=== PATIENT | male | born 1970 | race Caucasian/White ===

== ENCOUNTER 2019-03-23 18:41 | Inpatient (IN) ==
[2019-03-23] MEDS ORDERED: SODIUM CHLORIDE 0.9% 1000ML 2,000 ML IV SCH (19:15)
[2019-03-23] MEDS ORDERED: ACETAMINOPHEN 1,000 MG/100 ML VIAL IV STA (19:38)
[2019-03-23] MEDS ORDERED: MoRPHine SULFATE 10 MG/ML CARP/VIAL IV STA (19:46)
[2019-03-23 19:47] LABS: Basophils # (auto) 0.02 K/uL (0-0.2); Basophils % (auto) 0.2 %; Eosinophils # (auto) 0.14 K/uL (0-0.5); Eosinophils % (auto) 1.5 %; Hematocrit (blood only) 45.3 % (42-52); Hemoglobin 16.3 g/dL (14.0-18.0); Immature Granulocytes # (auto) 0.02 K/uL (0.00-0.02); Immature Granulocytes % (auto) 0.2 %; Lymphocytes # (auto) 2.45 K/uL (1.2-3.4); Lymphocytes % (auto) 26.1 %; Mean Corpuscular Volume 85.5 fL (80-100); Mean Platelet Volume 11.7 fL (7.4-10.4); Monocytes % (auto) 5.3 %; Neutrophils # (auto) 6.25 K/uL (1.4-6.5); Neutrophils % (auto) 66.7 %; Platelet Count 171 K/uL (130-400); RDW Coefficient of Variation 14.2 % (11.5-14.5); RDW Standard Deviation 44.4 fL (36.4-46.3); White Blood Count 9.38 K/uL (4.8-10.8)
[2019-03-23 20:08] LABS: Albumin Globulin Ratio 1.3 (0.9-2); Albumin Level 4.4 gm/dl (3.4-5.0); BUN Creatinine Ratio 14.7 (10-20); Bilirubin,Total 0.4 mg/dl (0.2-1); Calcium 9.6 mg/dl (8.5-10.1); Creatinine Clr Calc Pharmacy 100.1 ml/min; Est GFR (African American) 104.5; Est GFR (Non-African American) 90.2; Globulin 3.5 gm/dl (2.5-4.0); Total Protein 7.9 gm/dl (6.4-8.2)
[2019-03-23 20:39] LABS: Appearance Urine Clear (Clear); Bacteria Urine Automated Negative (Negative); Bilirubin Urine Negative (Negative); Blood Urine Trace (Negative); Color Urine Yellow; Epithelial Cell Urine Auto >30 /lpf (0-5); Glucose Urine UA Negative (Negative); Ketones Urine Negative (Negative); Leukocyte Esterase Urine 2+ (Negative); Nitrite Urine Negative (Negative); Protein Urine Trace (Negative); RBC Urine Automated 0-4 /hpf (0-4); Specific Gravity Urine 1.009 (1.000-1.030); Urobilinogen Urine Negative (Negative); WBC Urine Automated >30 /hpf (0-5)
[2019-03-23 20:51] LABS: Renal Epithelial Cells Urine 0-5 /lpf (0-5)
[2019-03-23] MEDS ORDERED: IOVERSOL 100ml IV PRN (20:56)
--- NOTE | 2019-03-23 22:02 | CT Scan Report ---
ABDOMEN AND PELVIS CT WITH IV CONTRAST CT DOSE: 336.06 mGy.cm HISTORY: left flank pain TECHNIQUE: Multiaxial CT images of the abdomen and pelvis were performed following the use of intrave nous contrast. A dose lowering technique was utilized adhering to the principles of ALARA. COMPARISON STUDY: None. FINDINGS: The lung bases are clear. No pneumoperitoneum. No pneumatosis. No fractures within the visu alized osseous structures. A few subcentimeter hypodense lesions within the left hepatic lobe. These are technically too small to characterize but statistically represent cysts. The gallbladder, spleen, pancreas, and right adrenal gland are unremarkable. There is a 3 mm stone within the right kidney. N o right-sided hydronephrosis. Moderate left hydronephrosis secondary to an obstructing 6 mm stone at the left ureteropelvic junction. There is an indeterminate 2.5 cm left adrenal gland nodule. No retro peritoneal lymphadenopathy. Normal bladder. No pelvic free fluid. No bowel wall thickening or obstruc tion. The appendix is surgically absent. Suture material within a small bowel lobe within the right l ower quadrant. Mild calcified plaque within the normal caliber abdominal aorta. IMPRESSION: 1. A 6 mm obstructing stone at the left ureteropelvic junction resulting in moderate left hydronephro sis. 2. Right-sided nephrolithiasis. 3. No bowel wall thickening or obstruction. 4. Prior appendectomy. Electronically signed by: Chano Mosher M.D. 03/23/2019 10:00 PM
[2019-03-23] MEDS ORDERED: cefTRIAXone SODIUM 1,000 MG/50 ML BAG IV STA (22:40)
[2019-03-23] MEDS ORDERED: ACETAMINOPHEN 325 MG TAB PO PRN (23:41)
[2019-03-23] MEDS ORDERED: TAMSULOSIN HCL 0.4 MG CAP PO ONE (23:41)
[2019-03-23] MEDS ORDERED: ONDANSETRON INJ 2 MG/ML 2 ML VIAL IV PRN (23:41)
[2019-03-24] MEDS: SODIUM CHLORIDE 0.9% 1000ML 1,000 ML IV SCH ×5 (00:58→22:05)
[2019-03-24] MEDS: MoRPHine SULFATE 4 MG/ML 1 ML CARP\\VIAL IV PRN ×5 (00:58→22:04)
--- NOTE | 2019-03-24 03:13 | History and Physical Report ---
DATE OF ADMISSION: 03/23/2019 CHIEF COMPLAINT: Left flank pain. HISTORY OF PRESENT ILLNESS: This 49-year-old male with past medical history significant for history of multiple kidney stones in the past, history of hepatitis C, history of depression, history of peripheral neuropathy, presents with left flank pain. He says the pain started at 11 o'clock going from the left flank to left groin region, very severe in nature, associated with some burning micturition. He said he also had some hematuria. Denies any fever, chills, no nausea or vomiting. He says he has history of stones in the past and passed them without any intervention. Currently resting comfortably, hemodynamically stable. Denies any headache, no dizziness, no earache, no blurred vision, no runny nose, no sore throat, no difficulty swallowing. Appetite is good. No night sweats. No recent weight gain, no weight loss. No chest pain or shortness of breath. No cough, no diarrhea, no constipation, no blood in the stools. He says he is also having difficulty when he micturates as he does not empty fully and also his stream is weak. Denies any swelling in the legs. No rash, no easy bleeding or easy bruising. He has a chronic back pain and also knee pain. His ambulation is limited because of the chronic pain. ALLERGIES: No known drug allergies. PAST MEDICAL HISTORY: As mentioned above. PAST SURGICAL HISTORY: Appendectomy, right knee surgery. MEDICATIONS: The patient is on Remeron 30 mg p.o. at bedtime and nortriptyline 25 mg p.o. b.i.d. FAMILY HISTORY: Significant for father of colon cancer. Brother has osteoporosis. SOCIAL HISTORY: Smokes 1 pack a day for several years. Alcohol occasional. Says had all kinds of drugs in the past, but quit them 11 years ago. REVIEW OF SYMPTOMS: As per HPI. Rest of review of systems negative. PHYSICAL EXAMINATION: GENERAL: The patient is of moderate build, not in acute distress. VITAL SIGNS: Temperature 36.8, pulse 63, respiratory rate 18, blood pressure 121/82, oxygen 98% room air. HEENT: No pallor, no icterus. Pupils equal, round, and reactive to light. NECK: No JVD, no neck masses, no carotid bruits. CARDIOVASCULAR: S1, S2 heard, regular rate and rhythm, no murmur, no gallop. RESPIRATORY SYSTEM: Normal AP diameter. No accessory muscle use. No wheezing, no crackles. ABDOMEN: Soft, bowel sounds present. Diffuse mild guarding. Left CVA tenderness present. No distention, no rigidity. CENTRAL NERVOUS SYSTEM: Cranial nerves II-XII grossly intact. Nonfocal. EXTREMITIES: No edema, no erythema. LABS: WBC 9.3, hemoglobin 16.3, hematocrit 45.3, platelets 171. Sodium 139, chloride 106, bicarbonate 24, BUN 14, creatinine 0.9, serum glucose 93, calcium 9.6, total bilirubin 0.4, ALT 40, alkaline phosphatase is 93, lipase 102. Urinalysis positive for trace blood and leukocyte esterase. CT of the abdomen and pelvis, a 6 mm obstructing stone at the left UPJ junction resulting in moderate hydronephrosis. No bowel wall thickening or obstruction, prior appendectomy. ASSESSMENT AND PLAN: 1. This is a 49-year-old male who presents with left renal colic, left sided kidney stone with 6 mm at UP junction causing moderate left hydronephrosis, 3 mm within right kidney, history of multiple kidney stones in the past per the patient. UA is positive. Received IV Rocephin in the ERwhich will be continued and will follow cultures. IV fluids, n.p.o. after midnight with IV pain meds p.r.n. and IV antiemetics p.r.n., and consult urology for possible stent placement. Monitor in the medical floor. 2. Chronic depression. Continue Remeron. 3. Chronic back pain. Peripheral neuropathy on nortriptyline 4.Deep venous thrombosis prophylaxis, sequential compression devices for now. Disposition: Admit to medical floor. Level 1 full code. MTDD
--- NOTE | 2019-03-24 04:55 | Emergency Department Note ---
Entered by Afshan Harris acting as a scribe for Iain Avelar MD History of Present Illness General Chief complaint: Kidney Stone Stated complaint: KIDNEY STONE Time Seen by Provider: 03/23/19 19:14 Source: patient Mode of arrival: ambulatory Limitations: no limitations History of Present Illness Provider complaint: left flank pain Onset (ago): day(s) (yesterday) Location: back and left Radiation: other (groin) Pain Consistency: + other (worsening) Maximum Pain Intensity: 10 Current Pain Intensity: 7 Quality: + other (stones) Associated symptoms: + other (urinary symptoms); no nausea/vomiting The patient is a 49 year old male with a history of kidney stones and hepatitis C who presents to the ER from [facility] with complaints of a worsening left flank pain that began yesterday. The patient reports that his pain radiates to his left groin. He denies any nausea or vomiting but states he has had d ifficulty urinating and explains he feels like he cant empty his bladder. He also notes that he has had discolored urine. He rates his pain a 7/10. Home Medications Home Medications Medication Instructions Recorded Confirmed Type ibuprofen 400 mg PO TID PRN 03/23/19 03/23/19 History mirtazapine 30 mg PO HS 03/23/19 03/23/19 History nortriptyline 25 mg PO BID 03/23/19 03/23/19 History Allergies Allergy/AdvReac Type Severity Reaction Status Date / Time No Known Allergies Allergy Unverified 03/23/19 20:03 Past Med/Surg History Medical History Hepatitis C Bilateral kidney stones Surgical History History of appendectomy Social History Preferred Language: Bolivian Communication Ability: Effective Associate Account Director Required: No Beliefs That Will Affect Care: None Current Living Situation: Other Current Living Situation Comment: [facility] Feels Safe at Home: Yes Safety Concerns: Feels Safe At This Time Smoking Status: Current every day smoker Hx Alcohol Use: No Hx Substance Use: No Review of Systems See HPI for pertinent positives & negatives. and A total of 10 systems reviewed and were otherwise negative Physical Exam Vital Signs Vital Signs - 24 hr 03/23/19 18:46 03/23/19 19:30 03/23/19 20:38 Temperature 36.8 C Temperature Source Oral Sepsis Recent Fever Within 48 Hours No Sepsis New/Unexplained Change in Mental Status No Sepsis Action Taken by Nursing No Action Required Pulse Rate 87 Pulse Rate [Apical] 73 Pulse Rate [Left Finger] Pulse Rhythm [Left Finger] Pulse Strength Normal Pulse Strength [Left Finger] Respiratory Rate 20 18 Respiratory Effort / Characteristics Non-Labored Spontaneous Respiratory Depth Normal Normal Blood Pressure 120/84 Blood Pressure [Right Arm] 135/80 Blood Pressure Mean 96 Blood Pressure Mean [Right Arm] 98 Blood Pressure Position Sitting Blood Pressure Position [Right Arm] Pulse Oximetry 99 96 Oxygen Delivery Method Room Air Room Air Room Air 03/23/19 22:08 03/23/19 23:24 03/23/19 23:35 Temperature 36.8 C 36.7 C Temperature Source Oral Oral Sepsis Recent Fever Within 48 Hours Sepsis New/Unexplained Change in Mental Status Sepsis Action Taken by Nursing Pulse Rate 71 Pulse Rate [Apical] 63 Pulse Rate [Left Finger] 69 Pulse Rhythm [Left Finger] Regular Pulse Strength Pulse Strength [Left Finger] Normal Respiratory Rate 18 16 16 Respiratory Effort / Characteristics Non-Labored Respiratory Depth Normal Normal Blood Pressure 121/80 Blood Pressure [Right Arm] 121/82 144/84 H Blood Pressure Mean Blood Pressure Mean [Right Arm] 95 104 Blood Pressure Position Blood Pressure Position [Right Arm] Lying Pulse Oximetry 98 99 99 Oxygen Delivery Method Room Air Room Air Room Air GENERAL: Awake, alert, uncomfortable-appearing, in no distress HENT: Normocephalic, atraumatic. Oropharynx with dry mucous membranes and otherwise unremarkable. EYES: Normal conjunctiva. Sclera non-icteric. NECK: Supple. No nuchal rigidity. FROM. No JVD. RESPIRATORY: CTAB CARDIAC: Regular rate, normal rhythm. Extremities warm and well perfused. Pulses equal. ABDOMEN: Soft, non-distended. Mild left flank and LLQ tenderness to palpation. No rebound or guarding. No masses. RECTAL: Deferred. MUSCULOSKELETAL: Chest examination reveals no tenderness. The back is symmetrical on inspection without obvious abnormality. There is no CVA tenderness to palpation. No joint edema. LOWER EXTREMITIES: Calves are equal size bilaterally and non-tender. No edema. No discoloration. NEURO: Normal sensorium. No sensory or motor deficits noted. SKIN: No rash or jaundice noted. Course 1939: The patient was evaluated in room C9 and a complete history and physical examination were performed. 2242: I reviewed the patient's case with Dr. Miguel [facility] Hospitalist. He will evaluate the patient for further management. Administered Medications Sodium Chloride (Nss 1000ml) 1,000 mls @ 150 mls/hr IV .Q6H40M NICOLLE Stop: 04/22/19 23:40 Last Admin: 03/24/19 00:58 Dose: 150 mls/hr Documented by: [id number] Morphine Sulfate (Morphine Sulfate) 3 mg IV Q3H PRN PRN Reason: Pain Stop: 04/06/19 23:40 Last Admin: 03/24/19 00:58 Dose: 3 mg Documented by: [id number] Discontinued Medications Sodium Chloride (Nss 1000ml) 2,000 mls @ 999 mls/hr IV .Q2H1M NICOLLE Stop: 03/23/19 21:15 Last Infusion: 03/23/19 21:11 Dose: 0 mls/hr Documented by: [id number] Admin: 03/23/19 19:51 Dose: 999 mls/hr Documented by: [id number] Acetaminophen (Ofirmev) 1,000 mg in 100 mls @ 400 mls/hr IV NOW STA Stop: 03/23/19 19:52 Last Infusion: 03/23/19 20:38 Dose: 0 mls/hr Documented by: [id number] Admin: 03/23/19 19:51 Dose: 400 mls/hr Documented by: [id number] Ceftriaxone Sodium (Rocephin) 1,000 mg in 50 mls @ 100 mls/hr IV NOW STA Stop: 03/23/19 23:09 Last Infusion: 03/23/19 23:16 Dose: 0 mls/hr Documented by: [id number] Admin: 03/23/19 22:46 Dose: 100 mls/hr Documented by: [id number] Ioversol (Optiray 320 100ml) 93 ml IV ONCE PRN PRN Reason: Interaction Checking Stop: 03/27/19 20:55 Last Admin: 03/23/19 20:56 Dose: 93 ml Documented by: [id number] Morphine Sulfate (Morphine Sulfate) 8 mg IV NOW STA Stop: 03/23/19 19:47 Last Admin: 03/23/19 19:51 Dose: 8 mg Documented by: [id number] Tamsulosin HCl (Flomax) 0.4 mg PO NOW ONE Stop: 03/23/19 23:42 Last Admin: 03/24/19 01:15 Dose: 0.4 mg Documented by: [id number] Medical Decision Making Differential Diagnosis Differential diagnosis includes: renal colic, appendicitis, diverticulitis, mesenteric ischemia, aortic pathology, infections, inflammatory bowel disease, PUD, biliary pathology, UTI, as well as others were entertained. Medical Records Attestation: I reviewed the patient's medical records. Home Medications Current Medication List: was personally reviewed by me Laboratory Data Attestation: I reviewed the patient's lab results. Result diagrams: 03/23/19 19:30 03/23/19 20:15 Lab Results 03/23/19 03/23/19 03/23/19 Range/Units 19:30 19:30 20:15 WBC 9.38 (4.8-10.8) K/uL RBC 5.30 (4.7-6.1) M/uL Hgb 16.3 (14.0-18.0) g/dL Hct 45.3 (42-52) % MCV 85.5 (80-100) fL MCH 30.8 (25-34) pg MCHC 36.0 (32-36) g/dL RDW Std Deviation 44.4 (36.4-46.3) fL RDW Coeff of Adan 14.2 (11.5-14.5) % Plt Count 171 (130-400) K/uL MPV 11.7 H (7.4-10.4) fL Immature Gran % (Auto) 0.2 % Neut % (Auto) 66.7 % Lymph % (Auto) 26.1 % [place] % (Auto) 5.3 % Eos % (Auto) 1.5 % Baso % (Auto) 0.2 % Immature Gran # (Auto) 0.02 (0.00-0.02) K/uL Neut # (Auto) 6.25 (1.4-6.5) K/uL Lymph # (Auto) 2.45 (1.2-3.4) K/uL [place]corn # (Auto) 0.50 (0.11-0.59) K/uL Eos # (Auto) 0.14 (0-0.5) K/uL Baso # (Auto) 0.02 (0-0.2) K/uL Sodium 139 (136-145) mmol/L Potassium (3.5-5.1) mmol/L Chloride 106 (98-107) mmol/L Carbon Dioxide 24 (21-32) mmol/L Anion Gap 9.0 (3-11) BUN 14 (7-18) mg/dl Creatinine 0.98 (0.6-1.4) mg/dl Est Cr Clr Drug Dosing 100.1 ml/min Est GFR ( Amer) 104.5 Est GFR (Non-Af Amer) 90.2 BUN/Creatinine Ratio 14.7 (10-20) Glucose 93 (70-99) mg/dl Calcium 9.6 (8.5-10.1) mg/dl Total Bilirubin 0.4 (0.2-1) mg/dl AST (15-37) U/L ALT 40 (12-78) U/L Alkaline Phosphatase 93 (45-117) U/L Total Protein 7.9 (6.4-8.2) gm/dl Albumin 4.4 (3.4-5.0) gm/dl Globulin 3.5 (2.5-4.0) gm/dl Albumin/Globulin Ratio 1.3 (0.9-2) Lipase 102 (73-393) U/L Urine Color Urine Appearance (Clear) Urine pH (4.5-7.5) Ur Specific [place] (1.000-1.030) Urine Protein (Negative) Urine Glucose (UA) (Negative) Urine Ketones (Negative) Urine Blood (Negative) Urine Nitrite (Negative) Urine Bilirubin (Negative) Urine Urobilinogen (Negative) Ur Leukocyte Esterase (Negative) Urine WBC (Auto) (0-5) /hpf Urine RBC (Auto) (0-4) /hpf U Hyaline Cast (Auto) (0-5) /lpf U Epithel Cells (Auto) (0-5) /lpf Urine Bacteria (Auto) (Negative) Ur Renal Epithelial Cell (0-5) /lpf Nasal Screen MRSA (PCR) (Negative) 03/23/19 03/24/19 Range/Units 20:23 01:20 WBC (4.8-10.8) K/uL RBC (4.7-6.1) M/uL Hgb (14.0-18.0) g/dL Hct (42-52) % MCV (80-100) fL MCH (25-34) pg MCHC (32-36) g/dL RDW Std Deviation (36.4-46.3) fL RDW Coeff of Adan (11.5-14.5) % Plt Count (130-400) K/uL MPV (7.4-10.4) fL Immature Gran % (Auto) % Neut % (Auto) % Lymph % (Auto) % [place] % (Auto) % Eos % (Auto) % Baso % (Auto) % Immature Gran # (Auto) (0.00-0.02) K/uL Neut # (Auto) (1.4-6.5) K/uL Lymph # (Auto) (1.2-3.4) K/uL [place] # (Auto) (0.11-0.59) K/uL Eos # (Auto) (0-0.5) K/uL Baso # (Auto) (0-0.2) K/uL Sodium (136-145) mmol/L Potassium (3.5-5.1) mmol/L Chloride (98-107) mmol/L Carbon Dioxide (21-32) mmol/L Anion Gap (3-11) BUN (7-18) mg/dl Creatinine (0.6-1.4) mg/dl Est Cr Clr Drug Dosing ml/min Est GFR ( Amer) Est GFR (Non-Af Amer) BUN/Creatinine Ratio (10-20) Glucose (70-99) mg/dl Calcium (8.5-10.1) mg/dl Total Bilirubin (0.2-1) mg/dl AST (15-37) U/L ALT (12-78) U/L Alkaline Phosphatase (45-117) U/L Total Protein (6.4-8.2) gm/dl Albumin (3.4-5.0) gm/dl Globulin (2.5-4.0) gm/dl Albumin/Globulin Ratio (0.9-2) Lipase (73-393) U/L Urine Color Yellow Urine Appearance Clear (Clear) Urine pH 7.0 (4.5-7.5) Ur Specific [place] 1.009 (1.000-1.030) Urine Protein Trace H (Negative) Urine Glucose (UA) Negative (Negative) Urine Ketones Negative (Negative) Urine Blood Trace H (Negative) Urine Nitrite Negative (Negative) Urine Bilirubin Negative (Negative) Urine Urobilinogen Negative (Negative) Ur Leukocyte Esterase 2+ H (Negative) Urine WBC (Auto) >30 H (0-5) /hpf Urine RBC (Auto) 0-4 (0-4) /hpf U Hyaline Cast (Auto) 1-5 (0-5) /lpf U Epithel Cells (Auto) >30 H (0-5) /lpf Urine Bacteria (Auto) Negative (Negative) Ur Renal Epithelial Cell 0-5 (0-5) /lpf Nasal Screen MRSA (PCR) Negative (Negative) Imaging Data Radiologist's Impression: Radiology results as stated below per my review and the radiologist's interpretation: ABDOMEN AND PELVIS CT WITH IV CONTRAST CT DOSE: 336.06 mGy.cm HISTORY: left flank pain TECHNIQUE: Multiaxial CT images of the abdomen and pelvis were performed following the use of intravenous contrast. A dose lowering technique was utilized adhering to the principles of ALARA. COMPARISON STUDY: None. FINDINGS: The lung bases are clear. No pneumoperitoneum. No pneumatosis. No fractures within the visualized osseous structures. A few subcentimeter hypodense lesions within the left hepatic lobe. These are technically too small to characterize but statistically represent cysts. The gallbladder, spleen, pancreas, and right adrenal gland are unremarkable. There is a 3 mm stone within the right kidney. No right-sided hydronephrosis. Moderate left hydronephrosis secondary to an obstructing 6 mm stone at the left ureteropelvic junction. There is an indeterminate 2.5 cm left adrenal gland nodule. No retroperitoneal lymphadenopathy. Normal bladder. No pelvic free fluid. No bowel wall thickening or obstruction. The appendix is surgically absent. Suture material within a small bowel lobe within the right lower quadrant. Mild calcified plaque within the normal caliber abdominal aorta. IMPRESSION: 1. A 6 mm obstructing stone at the left ureteropelvic junction resulting in moderate left hydronephrosis. 2. Right-sided nephrolithiasis. 3. No bowel wall thickening or obstruction. 4. Prior appendectomy. Electronically signed by: Chano Mosher M.D. 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 On arrival the patient is in NAD, AFVSS. Patient appears clinically dry. On exam he has mild left flank and LLQ tenderness to palpation. WBC, H/H, platelets wnl. Chemistry without acidosis. LFTs and electrolytes unremarkable. UA with LE2+ and WBC > 30 but with epitheleal cells>[address] abd/pelvis demonstrates 6 mm obstructing stone at the left ureteropelvic junction resulting in moderate left hydronephrosis. Patient feeling improved after IVF hydration apap, and morphine. Given the size of the patient's stone in the setting of UA with possible infection, reasonable to admit the patient for further management and likely urology consultation. Patient agreeable with plan. Case d/w Dr. Miguel, [facility] hospitalist, who will evaluate the patient for admission. Impression & Plan Hydronephrosis due to obstruction of ureter, Ureterolithiasis Discharge Plan Visit Data *Final* Discharge Date/Time: 03/23/19 23:24 Chief Complaint: Kidney Stone Stated Complaint: KIDNEY STONE ED Provider: Iain Avelar Discharge Problem: Hydronephrosis due to obstruction of ureter, Ureterolithiasis Patient Disposition: Admitted As Inpatient Discharge Instructions Interventions: ED Discharge Assessment Last Done: 03/23/19 23:24 The scribe's documentation has been prepared under my direction and personally reviewed by me in its entirety. I confirm that the note above accurately reflects all work, treatment, procedures, and medical decision making performed by me.
[2019-03-24 05:41] LABS: Basophils # (auto) 0.03 K/uL (0-0.2); Basophils % (auto) 0.4 %; Eosinophils % (auto) 2.9 %; Hematocrit (blood only) 40.6 % (42-52); Hemoglobin 14.2 g/dL (14.0-18.0); Immature Granulocytes # (auto) 0.01 K/uL (0.00-0.02); Immature Granulocytes % (auto) 0.1 %; Lymphocytes # (auto) 2.98 K/uL (1.2-3.4); Lymphocytes % (auto) 42.8 %; Mean Corpuscular Volume 86.8 fL (80-100); Mean Platelet Volume 11.8 fL (7.4-10.4); Monocytes # (auto) 0.52 K/uL (0.11-0.59); Monocytes % (auto) 7.5 %; Neutrophils # (auto) 3.22 K/uL (1.4-6.5); Neutrophils % (auto) 46.3 %; Platelet Count 144 K/uL (130-400); RDW Coefficient of Variation 14.3 % (11.5-14.5); RDW Standard Deviation 44.9 fL (36.4-46.3); Red Blood Count 4.68 M/uL (4.7-6.1); White Blood Count 6.96 K/uL (4.8-10.8)
[2019-03-24 06:12] LABS: BUN Creatinine Ratio 15.2 (10-20); Calcium 8.1 mg/dl (8.5-10.1); Creatinine Clr Calc Pharmacy 130.8 ml/min; Est GFR (African American) 124.8; Est GFR (Non-African American) 107.7; Magnesium 2.1 mg/dl (1.8-2.4); Potassium 3.9 mmol/L (3.5-5.1)
[2019-03-24] MEDS: NORTRIPTYLINE HCL 25 MG CAP PO SCH ×2 (08:40→22:04)
[2019-03-24] MEDS ORDERED: PROPOFOL IV EMULSION 10 MG/ML 20 ML VIAL IV ONE (12:32)
[2019-03-24] MEDS ORDERED: DEXAMETHASONE SOD INJ 4 MG/ML VIAL ONE (12:32)
[2019-03-24] MEDS ORDERED: ONDANSETRON INJ 2 MG/ML 2 ML VIAL ONE (12:32)
[2019-03-24] MEDS ORDERED: fentaNYL citrate 100 MCG/2 ML VIAL ONE (12:32)
[2019-03-24] MEDS ORDERED: MIDAZOLAM HCL 1 MG/ML 2ML VIAL ONE (12:32)
[2019-03-24] MEDS ORDERED: LIDOCAINE HCL 2% 2 ML VIAL/AMP(20MG/ML) INFIL ONE (12:32)
[2019-03-24] MEDS ORDERED: LACTATED RINGER'S 1,000 ML IV SCH (13:00)
[2019-03-24] MEDS ORDERED: PROMETHAZINE HCL 12.5 MG in SODIUM CHLORIDE 0.9% 50 ML IV PRN (13:05)
[2019-03-24] MEDS ORDERED: LABETALOL HCL IV 5 MG/ML 20ML IV PRN (13:05)
[2019-03-24] MEDS ORDERED: fentaNYL citrate 100 MCG/2 ML VIAL IV PRN (13:05)
[2019-03-24] MEDS ORDERED: ATROPINE SULFATE 0.1 MG/ML 10ML SYR IV PRN (13:05)
[2019-03-24] MEDS ORDERED: ONDANSETRON INJ 2 MG/ML 2 ML VIAL IV PRN (13:05)
[2019-03-24] MEDS ORDERED: NALOXONE HCL 0.4 MG/1 ML VIAL/CARP IV PRN (13:05)
[2019-03-24] MEDS ORDERED: FLUMAZENIL 0.1 MG/1 ML 10 ML VIAL IV PRN (13:05)
--- NOTE | 2019-03-24 13:05 | Anesthesiology Consultation ---
Date of Service March 24, 2019 Assessment & Plan Chart Review Chart Review: Acceptable Risk for Surgery and Patient NOT seen in Pre Admission Testing Consults Requested none ASA ASA3 Proposed Anesthesia Anesthesia Type: General Risk / Benefits Reviewed With: PT / POA / Parent / Guardian, Accepts Plan and Informed Consent Obtained History Surgery Operation Date: 03/24/19 08:10 Proposed Procedures p Cystoscopy, Left Ureteroscopy, Laser Lithotripsy, Basket Stone Extraction, Stent - Rosalinda Portillo MD Height/Weight Height: 6 ft Weight: 85.9 kg Allergies Allergy/AdvReac Type Severity Reaction Status Date / Time digoxin [From Lanoxin] AdvReac Difficulty Verified 03/24/19 12:38 Breathing Medications Home Medications Medication Instructions Recorded Confirmed Last Taken ibuprofen 400 mg PO TID PRN 03/23/19 03/23/19 Unknown mirtazapine 30 mg PO HS 03/23/19 03/23/19 03/22/19 19:00 nortriptyline 25 mg PO BID 03/23/19 03/23/19 03/23/19 07:00 Active Medications Generic Name Dose Route Start Last Admin Trade Name Freq PRN Reason Stop Dose Admin Sodium Chloride 1,000 mls @ 150 mls/hr 03/23/19 23:41 03/24/19 07:12 Nss 1000ml IV 04/22/19 23:40 150 mls/hr .Q6H40M NICOLLE Administration Lactated Ringer's 1,000 mls @ 15 mls/hr 03/24/19 13:00 03/24/19 12:55 Lr IV 04/23/19 12:59 15 mls/hr .Q24H NICOLLE Administration Morphine Sulfate 3 mg 03/23/19 23:41 03/24/19 09:25 Morphine Sulfate IV 04/06/19 23:40 3 mg Q3H PRN Administration Pain Nortriptyline HCl 25 mg 03/24/19 09:00 03/24/19 08:40 Pamelor PO 04/23/19 08:59 25 mg BID NICOLLE Administration NPO Date Last Intake of Fluids: 03/23/19 Time Last Intake of Fluids: 23:00 Date Last Intake of Solids: 03/23/19 Time Last Intake of Solids: 23:00 Past Medical History Medical History Hepatitis C Bilateral kidney stones Tobacco abuse Exercise / Class Metabolic Activity II 4-5 Yardwork/Stairs/Walk up hill Past Surgical History Surgical History History of appendectomy Past Anesthesia History No Hx of Anesthesia Complications and No Family Hx of Anesthesia Complications History of PONV No Hx of PONV, No Family Hx of PONV and No Hx of Motion Sickness Social History Smoking Status: Current every day smoker Hx Alcohol Use: No Hx Substance Use: Yes substance use type: does not use and former substance user Last Used Substance: Unknown (11 years ago) Physical Exam Vital Signs Last Vital Signs Temp 36.5 C 03/24/19 12:09 Pulse 63 03/24/19 12:09 Resp 20 03/24/19 12:09 BP 116/79 03/24/19 12:09 Pulse Ox 100 03/24/19 12:09 Constitutional not obese ENMT Mouth: + edentulous Thyromental Distance: > or= 3.5 Finger Breadths Mallampati Class: II Neck normal visual inspection and trachea midline; neck extension not limited Respiratory normal respiratory effort Auscultation: lungs clear to auscultation bilaterally Cardiovascular Rate/Rhythm: regular rate and regular rhythm Heart Sounds: no murmur Vessels: no carotid bruit Musculoskeletal Spine: normal cervical ROM Neurologic moves all extremities Motor/Sensory: + sensory deficit Psychiatric Orientation: alert and oriented x 3 Testing Laboratory Results 03/24/19 05:15 03/24/19 05:15 Urine Color Yellow 03/23/19 20:23 Urine Appearance Clear (Clear) 03/23/19 20:23 Urine pH 7.0 (4.5-7.5) 03/23/19 20:23 Ur Specific [place] 1.009 (1.000-1.030) 03/23/19 20:23 Urine Protein Trace (Negative) H 03/23/19 20:23 Urine Glucose (UA) Negative (Negative) 03/23/19 20:23 Urine Ketones Negative (Negative) 03/23/19 20:23 Urine Nitrite Negative (Negative) 03/23/19 20:23 Ur Leukocyte Esterase 2+ (Negative) H 03/23/19 20:23 Urine WBC (Auto) >30 /hpf (0-5) H 03/23/19 20:23 Urine RBC (Auto) 0-4 /hpf (0-4) 03/23/19 20:23 U Hyaline Cast (Auto) 1-5 /lpf (0-5) 03/23/19 20:23 U Epithel Cells (Auto) >30 /lpf (0-5) H 03/23/19 20:23 Urine Bacteria (Auto) Negative (Negative) 03/23/19 20:23 03/23/19 20:23 Urine Culture - Preliminary Urine,Clean Catch Pin-point growth present, reincubating.
--- NOTE | 2019-03-24 13:53 | Urology Consultation ---
Date of Consultation March 24, 2019 Assessment & Plan (1) Hydronephrosis due to obstruction of ureter: left large upper ureteral stone with hydro too large to pass plan to or today cysto left ureteroscopy laser litho basket stone extraction stent I explained surgery and risks and he signed consent. had ceftriacone at 11pm Present on Admission?: Yes History of Present Illness Reason for Consultation: left ureteral stone Requesting Physician: Dr Miguel Attending Physician: Raimundo Penn MD History of Present Illness I am asled by Dr Miguel to evaluate and treat patient for left renal colic. he has had other stones. he has severe left flank pain. Ct shows a 9+mm left upper ureteral stone. He has hydro. urine does not seem infected. he has moderate pain. he has not had emesis. No fevers Allergies Allergy/AdvReac Type Severity Reaction Status Date / Time digoxin [From Lanoxin] AdvReac Difficulty Verified 03/24/19 12:38 Breathing Home Medications Home Medications Medication Instructions Recorded Confirmed Type ibuprofen 400 mg PO TID PRN 03/23/19 03/23/19 History mirtazapine 30 mg PO HS 03/23/19 03/23/19 History nortriptyline 25 mg PO BID 03/23/19 03/23/19 History Patient History Medical History Hepatitis C Bilateral kidney stones Tobacco abuse Surgical History History of appendectomy Social History Preferred Language: Lithuanian Communication Ability: Effective Learning Disabilities Resource Teacher Required: No Beliefs That Will Affect Care: None Current Living Situation: Other Current Living [facility]uation Comment[facility] Feels Safe at Home: Yes Safety Concerns: Feels Safe At This Time Smoking Status: Current every day smoker Hx Alcohol Use: No Hx Substance Use: Yes substance use type: does not use and former substance user Last Used Substance: Unknown (11 years ago) Review of Systems Review of Systems: PMH- back problems on disability for back problems PSH- appy, right kneecap surgery Sox- 1 ppd x 35 yrs, no etoh as incarcerated, + children, prisoner Fam Hx- dad had colon cancer in his 40's ROS- no fevers + chils, + left back pain, + chronic back pain, no constiation, no seizures, no rash, no chest pain, no SOB, appetite fine, no weakness, + left finger numbness Physical Exam Constitutional: WD/WN, vitals as above + acute distress and + thin Respiratory: normal respiratory effort, lungs clear to auscultation Cardiovascular: RRR, no murmur, no edema Psychiatric: A+Ox3, euthymic affect Results & Data Vital Signs (Past 12 Hours) Vital Signs Temp Pulse Resp BP Pulse Ox 03/24/19 12:09 36.5 C 63 20 116/79 100 03/24/19 08:03 36.7 C 60 16 107/66 97
[2019-03-24] MEDS ORDERED: BELLADONNA/OPIUM SUPP 60 MG SUPP PR PRN (14:44)
[2019-03-24] MEDS ORDERED: BELLADONNA/OPIUM SUPP 60 MG SUPP PR ONE (14:44)
--- NOTE | 2019-03-24 14:58 | Fluoroscopy Report ---
FL retrograde includes kub HISTORY: LT CYSTO STENT FLUOROSCOPY TIME: 19 seconds FINDINGS: 2 fluoroscopic spot images were submitted for review. Evidence for placement of a left uret eral stent. Only the distal stent was visualized and appears to be in good position. IMPRESSION: Fluoroscopy provided for left ureteral stent placement. Electronically signed by: Chano Mosher M.D. 03/24/2019 2:57 PM
[2019-03-24] MEDS ORDERED: KETOROLAC 30 MG/ML VIAL ONE (15:01)
--- NOTE | 2019-03-24 15:07 | Operative Report ---
Post Operative Report Pre & Post Diagnosis Operation Date: 03/24/19 08:10 Pre-Op Diagnosis: Left obstructing ureteral stone Post-Op Diagnosis: Left obstructing ureteral stone Procedure Operation Date: 03/24/19 08:10 Actual Procedures p Cystoscopy, Left Ureteroscopy, Laser Lithotripsy, Basket Stone Extraction, Left Ureteral Stent Placement(Left) - Rosalinda Portillo MD Surgeon Rosalinda Portillo MD Marina Porter none Estimated Blood Loss 1 Findings Consistent with Post-Op Diagnosis radio-opaque left upper ureteral stone Fluids 300 Specimens left ureteral stone fragments Complications none Disposition Accompanied Patient To Recovery: Yes Disposition: Recovery Room Description of Procedure Description of Procedure cysto left ureteroscopy laser lithotripsy basket stone extraction stent Patient was given general LMA anesthesia and placed in lithotomy position. His genitals were prepped and draped in sterile fashion. Time out held with team. I placed a 21 fr rigid cystoscope to bladder. The urethra is unremarkable. The prostate is small and short but does raise the bladder neck a bit. The UOs are laterally displaced a oval shape. I placed a road runner wire up left ureter easily and used a 5 fr to exchange to a road runner wire. I then passed a dual lumen to place a second wire and it passed easily. I passed the flexible ureteroscope over the second wire to the mid ureter. I then passed the scope up the rest of the left ureter under vision. Ureter is of a nice caliber. the stone has been pushed into the renal pelvis. the stone is 70% reyes crystalline soft outer shell with a small dark brown harder core. I used a 270 micron holmium laser to fragment the stone into small pieces. I used a 1.9 fr zero tip basket to remove the medium and small pieces leaving only sugar crystal sized pieces. I placed a 24 centimeter 6 Fr double J stent easily. I left the string exiting the urethra. There is brisk efflux after placement. I left bladder empty and concluded case. I placed a belladonna and opium suppository for post- op pain. His prostate is 30 grams and normal surface texture smooth. He transferred to recovery under my escort, in stable condition. Plan: Home tomorrow Pyridium for dysuria x 3 days flomax daily stent out via string in 72 hours (saturday) oral pain meds as needed ASA 3 clean contaminated case 19 seconds fluoro ceftriaxone at 11pm I attest to the content of the Intraoperative Record and any orders documented therein. Any exceptions are noted below.
--- NOTE | 2019-03-24 15:35 | Anesthesiology Progress Note ---
Date of Service March 24, 2019 Anesthesia Post Procedure Vital Signs Vital Signs: Temp Pulse Pulse Pulse Resp BP BP 03/24/19 15:25 36.4 C L 59 L 16 117/70 03/24/19 15:20 63 18 119/74 03/24/19 15:10 75 18 138/78 03/24/19 15:01 36.0 C L 81 16 138/78 03/24/19 12:09 36.5 C 63 20 116/79 03/24/19 08:03 36.7 C 60 16 107/66 03/23/19 23:35 36.7 C 69 16 144/84 H 03/23/19 23:24 71 16 121/80 03/23/19 22:08 36.8 C 63 18 121/82 03/23/19 20:38 73 18 135/80 03/23/19 18:46 36.8 C 87 20 120/84 Pulse Ox 03/24/19 15:25 99 03/24/19 15:20 100 03/24/19 15:10 100 03/24/19 15:01 100 03/24/19 12:09 100 03/24/19 08:03 97 03/23/19 23:35 99 03/23/19 23:24 99 03/23/19 22:08 98 03/23/19 20:38 96 03/23/19 18:46 99 Pain Intensity Left Flank: Pain Intensity: 0 Transfer of Care Handoff Completed per policy Notes Mental Status: alert / awake / arousable Patient Amnestic to Procedure: Yes Nausea / Vomiting: adequately controlled Pain: adequately controlled Airway Patency, RR, SpO2: stable & adequate BP & HR: stable & adequate Hydration State: stable & adequate Anesthetic Complications: no major complications apparent
[2019-03-24] MEDS ORDERED: IBUPROFEN 200 MG TAB PO PRN (15:48)
[2019-03-24] MEDS ORDERED: cefTRIAXone SODIUM 2,000 MG in DEXTROSE 5% 50 ML IV SCH (18:00)
[2019-03-24] MEDS: PHENAZOPYRIDINE HCL 200 MG TAB PO PRN (18:47)
[2019-03-24] MEDS ORDERED: TAMSULOSIN HCL 0.4 MG CAP PO SCH (21:00)
[2019-03-24] MEDS ORDERED: MIRTAZAPINE TAB 15 MG TAB PO SCH (21:00)
--- NOTE | 2019-03-24 21:17 | Hospitalist Progress Note ---
Date of Service March 24, 2019 Assessment & Plan (1) Ureteral calculus: Presented with left flank pain. UA demonstrated 2+ leukocyte esterase, > 30 WBC's, no bacteria. CT demonstrated 6 mm calculus at left UP junction with associated hydronephrosis. Cysto with left ureteroscopy, laser lithotripsy, basket stone extraction, left ureteral stent placement performed this afternoon by Dr. Portillo. Receiving IV ceftriaxone pending urine culture results. Continue tamsulosin, phenazopyridine, analgesics. Stent to be removed on Tuesday 03/27. (2) Hepatitis C: . (3) DVT prophylaxis: SCD's ordered. (4) Discharge planning issues: [facility] health care team there. Urology follow-up with Dr. Portillo. Subjective Recheck for ureteral calculus. Patient seen in their room around 1730. Cysto with left ureteroscopy, laser lithotripsy, basket stone extraction, left ureteral stent placement performed this afternoon by Dr. Portillo. Having some postop discomfort, dysuria, hematuria. No fever. Review of Systems: Constitutional- as noted above Cardiac- no chest pain. Pulmonary- no cough or SOB. GI- no nausea, vomiting, diarrhea, melena, hematochezia. - as noted above Otherwise, as noted above. Physical Exam Constitutional: no acute distress Respiratory: no respiratory distress Auscultation: lungs clear to auscultation bilaterally Cardiovascular: Rate/Rhythm: regular rate and regular rhythm Heart Sounds: no gallop Vessels: no JVD Extremities: no calf tenderness and no edema Gastrointestinal (Abdomen): normal bowel sounds, soft, nontender, no hepatosplenomegaly Skin: no rashes, warm and dry Psychiatric: Orientation: alert and oriented x 3 Results & Data Vital Signs (Past 12 Hours) Vital Signs Temp Pulse Pulse Resp BP Pulse Ox 03/24/19 19:38 36.7 C 63 16 128/81 98 03/24/19 18:32 36.7 C 69 18 116/76 96 03/24/19 16:55 36.4 C L 56 L 18 129/83 99 03/24/19 16:17 36.4 C L 51 L 16 129/83 99 03/24/19 15:50 36.6 C 57 L 16 118/78 99 03/24/19 15:35 36.4 C L 57 L 14 118/82 100 03/24/19 15:25 36.4 C L 59 L 16 117/70 99 03/24/19 15:20 63 18 119/74 100 03/24/19 15:10 75 18 138/78 100 03/24/19 15:01 36.0 C L 81 16 138/78 100 03/24/19 12:09 36.5 C 63 20 116/79 100 Laboratory Results Laboratory Results - last 24 hr 03/24/19 03/24/19 03/24/19 01:20 05:15 05:15 WBC 6.96 RBC 4.68 L Hgb 14.2 Hct 40.6 L MCV 86.8 MCH 30.3 MCHC 35.0 RDW Std Deviation 44.9 RDW Coeff of Adan 14.3 Plt Count 144 MPV 11.8 H Immature Gran % (Auto) 0.1 Neut % (Auto) 46.3 Lymph % (Auto) 42.8 [place] % (Auto) 7.5 Eos % (Auto) 2.9 Baso % (Auto) 0.4 Immature Gran # (Auto) 0.01 Neut # (Auto) 3.22 Lymph # (Auto) 2.98 [place] # (Auto) 0.52 Eos # (Auto) 0.20 Baso # (Auto) 0.03 Sodium 140 Potassium 3.9 Chloride 111 H Carbon Dioxide 26 Anion Gap 3.0 BUN 11 Creatinine 0.75 Est Cr Clr Drug Dosing 130.8 Est GFR ( Amer) 124.8 Est GFR (Non-Af Amer) 107.7 BUN/Creatinine Ratio 15.2 Glucose 87 Calcium 8.1 L D Magnesium 2.1 Nasal Screen MRSA (PCR) Negative Microbiology 03/23/19 20:23 Urine,Clean Catch Urine Culture - Preliminary Pin-point growth present, reincubating.
[2019-03-25] MEDS: MoRPHine SULFATE 4 MG/ML 1 ML CARP\\VIAL IV PRN ×3 (02:45→16:29)
[2019-03-25] MEDS: SODIUM CHLORIDE 0.9% 1000ML 1,000 ML IV SCH ×2 (04:44→11:32)
[2019-03-25] MEDS: NORTRIPTYLINE HCL 25 MG CAP PO SCH (08:08)
[2019-03-25] MEDS: PHENAZOPYRIDINE HCL 200 MG TAB PO PRN ×2 (08:23→17:06)
--- NOTE | 2019-03-25 13:32 | Hospitalist Progress Note ---
Date of Service March 25, 2019 Assessment & Plan (1) Ureteral calculus: Presented with left flank pain. UA demonstrated 2+ leukocyte esterase, > 30 WBC's, no bacteria. CT demonstrated 6 mm calculus at left UP junction with associated hydronephrosis. Cysto with left ureteroscopy, laser lithotripsy, basket stone extraction, left ureteral stent placement performed by Dr. Portillo. DC ceftriaxone, urine culture results-Prelim Staph Aureus. Start Bactrim Continue tamsulosin, phenazopyridine, analgesics. Stent removed by patient today in the bathroom, await input (2) Hepatitis C: By history (3) DVT prophylaxis: SCD's ordered. (4) Discharge planning issues: [facility]ticipated [facility] of his health care team there. Urology follow-up with Dr. Portillo. Subjective 49-year-old male with past medical history significant for history of multiple kidney stones in the past, history of hepatitis C, history of depression, history of peripheral neuropathy, presents with left flank pain. He says the pain started at 11 o'clock going from the left flank to left groin region, very severe in nature, associated with some burning micturition. He said he also had some hematuria. Denies any fever, chills, no nausea or vomiting. He says he has history of stones in the past and passed them without any intervention. Currently resting comfortably, hemodynamically stable. Denies any headache, no dizziness, no earache, no blurred vision, no runny nose, no sore throat, no difficulty swallowing. Appetite is good. No night sweats. No recent weight gain, no weight loss. No chest pain or shortness of breath. No cough, no diarrhea, no constipation, no blood in the stools. He says he is also having difficulty when he micturates as he does not empty fully and also his stream is weak. Denies any swelling in the legs. No rash, no easy bleeding or easy bruising. He has a chronic back pain and also knee pain. His ambulation is limited because of the chronic pain. Pulled out stent in bathroom today, was feeling better. ROS-No Headache, No Visual Changes, No Nausea, No Vomiting, No Fever, No Chills, No Neck Pain or Stiffness, No Chest Pain, No Palpitations, No SOB, No KILLIAN, No Cough, No Sputum, No Wheezing, No Abdominal Pain, No Diarrhea, No Hematemesis, No Hemoptysis, No Unexpected Weight Loss, No Flank pain, No Melena, No Hematochezia, No Frequency, No Urgency, No Burning, No Hematuria, No Rashes, No Diaphoresis. Appetite is Normal Physical Exam Gen-AAO x 3, NAD, Afebrile Head-NCAT, EOMI, PERRLA, Anicteric Sclera, No Posterior Pharyngeal Erythema Neck-Supple, No JVD, No Thyromegaly, No Masses, No LAD, No Bruits Lungs-Clear to Auscultation Bilaterally, No Rales, No Rhonchi, No Wheezing, No Crepitus Chest-No S4, +S1, +S2, No S3, No Murmurs, No Rubs, No Gallops, No Ectopy Abdomen-Soft, Bowel Sounds Present, Non Tender, Non Distended, No Hepatomegaly, No Splenomegaly, No Palpable Masses, No Rebound, No Rigidity, No Guarding Musculoskeletal-Full Range of Motion Bilaterally, No CVAT Extremities-No Cyanosis, No Clubbing, No Edema Nuero-Cranial Nerves II-XII grossly intact, Motor WNL, DTRs WNL, Strength WNL, Non Focal Psych-Normal Mood Results & Data Vital Signs (Past 12 Hours) Vital Signs Temp Pulse Resp BP Pulse Ox 03/25/19 07:37 36.5 C 60 16 129/78 95 03/25/19 02:38 36.6 C 61 16 123/72 98 Current Diagnoses Unspecified viral hepatitis C without hepatic coma (03/23/19) Hydronephrosis with renal and ureteral calculous obstruction (03/23/19) Calculus of ureter (03/23/19) Encounter for administrative examinations, unspecified (03/23/19) Allergies digoxin [From Lanoxin] Adverse Reaction (Verified 03/24/19 12:38) Difficulty Breathing Height/Weight/Isolation Height 6 ft Weight 85.9 kg Chemistry 03/23/19 03/23/19 03/24/19 19:30 20:15 05:15 Sodium 139 140 Potassium 3.9 Chloride 106 111 H Carbon Dioxide 24 26 Anion Gap 9.0 3.0 BUN 14 11 Creatinine 0.98 0.75 Glucose 93 87 Urinalysis 03/23/19 20:23 Urine Color Yellow Urine Appearance Clear Urine pH 7.0 Ur Specific [place] 1.009 Urine Protein Trace H Urine Glucose (UA) Negative Urine Ketones Negative Urine Blood Trace H Urine Nitrite Negative Urine Bilirubin Negative Microbiology 03/23/19 20:23 Urine,Clean Catch Urine Culture - Preliminary Staphylococcus aureus Staphylococcus aureus#2
--- NOTE | 2019-03-25 16:46 | Discharge Summary ---
Date of Service March 25, 2019 Admission HPI Per Admitting Provider 49-year-old male with past medical history significant for history of multiple kidney stones in the past, history of hepatitis C, history of depression, history of peripheral neuropathy, presents with left flank pain. He says the pain started at 11 o'clock going from the left flank to left groin region, very severe in nature, associated with some burning micturition. He said he also had some hematuria. Denies any fever, chills, no nausea or vomiting. He says he has history of stones in the past and passed them without any intervention. Currently resting comfortably, hemodynamically stable. Denies any headache, no dizziness, no earache, no blurred vision, no runny nose, no sore throat, no difficulty swallowing. Appetite is good. No night sweats. No recent weight gain, no weight loss. No chest pain or shortness of breath. No cough, no diarrhea, no constipation, no blood in the stools. He says he is also having difficulty when he micturates as he does not empty fully and also his stream is weak. Denies any swelling in the legs. No rash, no easy bleeding or easy bruising. He has a chronic back pain and also knee pain. His ambulation is limited because of the chronic pain. Admission Exam Per Admitting Provider PHYSICAL EXAMINATION: GENERAL: The patient is of moderate build, not in acute distress. VITAL SIGNS: Temperature 36.8, pulse 63, respiratory rate 18, blood pressure 121/82, oxygen 98% room air. HEENT: No pallor, no icterus. Pupils equal, round, and reactive to light. NECK: No JVD, no neck masses, no carotid bruits. CARDIOVASCULAR: S1, S2 heard, regular rate and rhythm, no murmur, no gallop. RESPIRATORY SYSTEM: Normal AP diameter. No accessory muscle use. No wheezing, no crackles. ABDOMEN: Soft, bowel sounds present. Diffuse mild guarding. Left CVA tenderness present. No distention, no rigidity. CENTRAL NERVOUS SYSTEM: Cranial nerves II-XII grossly intact. Nonfocal. EXTREMITIES: No edema, no erythema. Principal Diagnosis Renal Stone UTI Discharge Exam ROS-No Headache, No Visual Changes, No Nausea, No Vomiting, No Fever, No Chills, No Neck Pain or Stiffness, No Chest Pain, No Palpitations, No SOB, No KILLIAN, No Cough, No Sputum, No Wheezing, No Abdominal Pain, No Diarrhea, No Hematemesis, No Hemoptysis, No Unexpected Weight Loss, No Flank pain, No Melena, No Hematochezia, No Frequency, No Urgency, No Burning, No Hematuria, No Rashes, No Diaphoresis. Appetite is Normal Physical Exam Gen-AAO x 3, NAD, Afebrile Head-NCAT, EOMI, PERRLA, Anicteric Sclera, No Posterior Pharyngeal Erythema Neck-Supple, No JVD, No Thyromegaly, No Masses, No LAD, No Bruits Lungs-Clear to Auscultation Bilaterally, No Rales, No Rhonchi, No Wheezing, No Crepitus Chest-No S4, +S1, +S2, No S3, No Murmurs, No Rubs, No Gallops, No Ectopy Abdomen-Soft, Bowel Sounds Present, Non Tender, Non Distended, No Hepatomegaly, No Splenomegaly, No Palpable Masses, No Rebound, No Rigidity, No Guarding Musculoskeletal-Full Range of Motion Bilaterally, No CVAT Extremities-No Cyanosis, No Clubbing, No Edema Nuero-Cranial Nerves II-XII grossly intact, Motor WNL, DTRs WNL, Strength WNL, Non Focal Psych-Normal Mood Discharge Data Allergies Allergy/AdvReac Type Severity Reaction Status Date / Time digoxin [From Lanoxin] AdvReac Difficulty Verified 03/24/19 12:38 Breathing Consultations 03/23/19 22:40 ED Decision to Admit Stat 03/24/19 08:00 Consult Urology Routine Current Diagnoses Unspecified viral hepatitis C without hepatic coma (03/23/19) Hydronephrosis with renal and ureteral calculous obstruction (03/23/19) Calculus of ureter (03/23/19) Encounter for administrative examinations, unspecified (03/23/19) Allergies digoxin [From Lanoxin] Adverse Reaction (Verified 03/24/19 12:38) Difficulty Breathing Height/Weight/Isolation Height 6 ft Weight 85.9 kg Chemistry 03/23/19 03/23/19 03/24/19 19:30 20:15 05:15 Sodium 139 140 Potassium 3.9 Chloride 106 111 H Carbon Dioxide 24 26 Anion Gap 9.0 3.0 BUN 14 11 Creatinine 0.98 0.75 Glucose 93 87 Urinalysis 03/23/19 20:23 Urine Color Yellow Urine Appearance Clear Urine pH 7.0 Ur Specific [place] 1.009 Urine Protein Trace H Urine Glucose (UA) Negative Urine Ketones Negative Urine Blood Trace H Urine Nitrite Negative Urine Bilirubin Negative Microbiology 03/23/19 20:23 Urine,Clean Catch Urine Culture - Preliminary Staphylococcus aureus Staphylococcus aureus#2 Procedures Performed Operation Date: 03/24/19 08:10 Actual Procedures p Cystoscopy, Left Ureteroscopy, Laser Lithotripsy, Basket Stone Extraction, Left Ureteral Stent Placement(Left) - Rosalinda Portillo MD 03/25 Laser Cysto Ordered Studies 03/23/19 20:40 CT abd pelvis IV con only Stat 03/24/19 13:00 [place] retrograde includes kub Routine Hospital Course (1) Ureteral calculus: Presented with left flank pain. UA demonstrated 2+ leukocyte esterase, > 30 WBC's, no bacteria. CT demonstrated 6 mm calculus at left UP junction with associated hydronephrosis. Cysto with left ureteroscopy, laser lithotripsy, basket stone extraction, left ureteral stent placement performed by Dr. Portillo. DC ceftriaxone, urine culture results-Prelim Staph Aureus. Start Bactrim Continue tamsulosin, phenazopyridine, analgesics. Stent removed by patient today in the bathroom, Taken back to OR for Laser, DC today Add Bactrim DS for 7 days, Flomax 0.4 for 30 days, Pyridium 200 TID x 3 days (2) Hepatitis C: By history (3) DVT prophylaxis: SCD's ordered. (4) Discharge planning issues: [facility] care of [facility] care team there today. Urology follow-up with Dr. Portillo. Total Time Total Time Spent Total Time Spent (In Minutes): 45 min Total Time Includes: Examination of the Patient, Discharge Planning, Medication Reconciliation and Communication With Other Providers Discharge Plan Discharge Items [facility] Reason For Visit: RENAL COLIC Discharge Diagnosis: Renal Stone UTI Discharge Goals: Improve disease control Activity: Resume your previous activity Lifting: None and Gradually increase as tolerated Bathing: No limitations Sexual Activity: When tolerated Exercise/Sports: None and Gradually increase as tolerated Driving/Machine Use: No limitations Weightbearing: Left weightbearing and Right weightbearing Non-emergency contact: Primary Care Provider and Urologist Call non-emergency contact if: you have any medication questions Follow-up/Referrals: Katie ANNE [Primary Care Provider] - Rosalinda Portillo MD [Physician] - (1-2 weeks or as directed) Diet: Regular Addtl Provider Instructions: Arrange f/u c if needed Prescriptions: New acetaminophen [Mapap (acetaminophen)] 325 mg Tablet 650 mg PO Q4H PRN (Reason: fever or pain) Qty: 90 RF: 0 sulfamethoxazole-trimethoprim 800-160 mg Tablet 1 tab PO Q12 Qty: 14 RF: 0 tamsulosin 0.4 mg Capsule 0.4 mg PO HS Qty: 30 RF: 0 phenazopyridine [Pyridium] 200 mg Tablet 200 mg PO TID Qty: 9 RF: 0 Continued ibuprofen 400 mg Tablet 400 mg PO TID PRN (Reason: Pain) RF: 0 mirtazapine 30 mg Tablet 30 mg PO HS RF: 0 nortriptyline 25 mg Capsule 25 mg PO BID RF: 0 Stand-Alone Forms: [facility] Discharge Orders: Discharge Order (Routine); Ordered 03/25/19 Ordered By: Kan Garcia Admission Data Admit Date/Time: 03/23/19 23:06 Attending Provider: Kan Garcia Admit Provider: Nathanael Miguel Primary Care Provider: Katie ANNE Other Providers: Nathanael Miguel ; Rosalinda Portillo Service: Surgical Services
[2019-03-25] MEDS ORDERED: SULFAMETHOXAZOLE/TRIMETHOPRIM DS 800/160MG TAB PO SCH (18:00)
--- NOTE | 2019-03-25 19:32 | Discharge Summary ---
Date of Service March 25, 2019 Admission HPI Per Admitting Provider 49-year-old male with past medical history significant for history of multiple kidney stones in the past, history of hepatitis C, history of depression, history of peripheral neuropathy, presents with left flank pain. He says the pain started at 11 o'clock going from the left flank to left groin region, very severe in nature, associated with some burning micturition. He said he also had some hematuria. Denies any fever, chills, no nausea or vomiting. He says he has history of stones in the past and passed them without any intervention. Currently resting comfortably, hemodynamically stable. Denies any headache, no dizziness, no earache, no blurred vision, no runny nose, no sore throat, no difficulty swallowing. Appetite is good. No night sweats. No recent weight gain, no weight loss. No chest pain or shortness of breath. No cough, no diarrhea, no constipation, no blood in the stools. He says he is also having difficulty when he micturates as he does not empty fully and also his stream is weak. Denies any swelling in the legs. No rash, no easy bleeding or easy bruising. He has a chronic back pain and also knee pain. His ambulation is limited because of the chronic pain. S/P Ureteral Stent, DC Home Admission Exam Per Admitting Provider PHYSICAL EXAMINATION: GENERAL: The patient is of moderate build, not in acute distress. VITAL SIGNS: Temperature 36.8, pulse 63, respiratory rate 18, blood pressure 121/82, oxygen 98% room air. HEENT: No pallor, no icterus. Pupils equal, round, and reactive to light. NECK: No JVD, no neck masses, no carotid bruits. CARDIOVASCULAR: S1, S2 heard, regular rate and rhythm, no murmur, no gallop. RESPIRATORY SYSTEM: Normal AP diameter. No accessory muscle use. No wheezing, no crackles. ABDOMEN: Soft, bowel sounds present. Diffuse mild guarding. Left CVA tenderness present. No distention, no rigidity. CENTRAL NERVOUS SYSTEM: Cranial nerves II-XII grossly intact. Nonfocal. EXTREMITIES: No edema, no erythema. Principal Diagnosis Renal Stone Discharge Exam ROS-No Headache, No Visual Changes, No Nausea, No Vomiting, No Fever, No Chills, No Neck Pain or Stiffness, No Chest Pain, No Palpitations, No SOB, No KILLIAN, No Cough, No Sputum, No Wheezing, No Abdominal Pain, No Diarrhea, No Hematemesis, No Hemoptysis, No Unexpected Weight Loss, No Flank pain, No Melena, No Hematochezia, No Frequency, No Urgency, No Burning, No Hematuria, No Rashes, No Diaphoresis. Appetite is Normal Physical Exam Gen-AAO x 3, NAD, Afebrile Head-NCAT, EOMI, PERRLA, Anicteric Sclera, No Posterior Pharyngeal Erythema Neck-Supple, No JVD, No Thyromegaly, No Masses, No LAD, No Bruits Lungs-Clear to Auscultation Bilaterally, No Rales, No Rhonchi, No Wheezing, No Crepitus Chest-No S4, +S1, +S2, No S3, No Murmurs, No Rubs, No Gallops, No Ectopy Abdomen-Soft, Bowel Sounds Present, Non Tender, Non Distended, No Hepatomegaly, No Splenomegaly, No Palpable Masses, No Rebound, No Rigidity, No Guarding Musculoskeletal-Full Range of Motion Bilaterally, No CVAT Extremities-No Cyanosis, No Clubbing, No Edema Nuero-Cranial Nerves II-XII grossly intact, Motor WNL, DTRs WNL, Strength WNL, Non Focal Psych-Normal Mood Discharge Data Allergies Allergy/AdvReac Type Severity Reaction Status Date / Time digoxin [From Lanoxin] AdvReac Difficulty Verified 03/24/19 12:38 Breathing Consultations 03/23/19 22:40 ED Decision to Admit Stat 03/24/19 08:00 Consult Urology Routine Procedures Performed Operation Date: 03/24/19 08:10 Actual Procedures p Cystoscopy, Left Ureteroscopy, Laser Lithotripsy, Basket Stone Extraction, Left Ureteral Stent Placement(Left) - Rosalinda Portillo MD Current Diagnoses Unspecified viral hepatitis C without hepatic coma (03/23/19) Hydronephrosis with renal and ureteral calculous obstruction (03/23/19) Calculus of ureter (03/23/19) Encounter for administrative examinations, unspecified (03/23/19) Allergies digoxin [From Lanoxin] Adverse Reaction (Verified 03/24/19 12:38) Difficulty Breathing Height/Weight/Isolation Height 6 ft Weight 85.9 kg Chemistry 04/29/19 04/29/19 04/30/19 19:30 20:15 05:15 Sodium 139 140 Potassium 3.9 Chloride 106 111 H Carbon Dioxide 24 26 Anion Gap 9.0 3.0 BUN 14 11 Creatinine 0.98 0.75 Glucose 93 87 Urinalysis 03/23/19 20:23 Urine Color Yellow Urine Appearance Clear Urine pH 7.0 Ur Specific [place] 1.009 Urine Protein Trace H Urine Glucose (UA) Negative Urine Ketones Negative Urine Blood Trace H Urine Nitrite Negative Urine Bilirubin Negative Microbiology 03/23/19 20:23 Urine,Clean Catch Urine Culture - Preliminary Staphylococcus aureus Staphylococcus aureus#2 Ordered Studies 03/23/19 20:40 CT abd pelvis IV con only Stat 03/24/19 13:00 FL retrograde includes kub Routine Hospital Course (1) Ureteral calculus: Presented with left flank pain. UA demonstrated 2+ leukocyte esterase, > 30 WBC's, no bacteria. CT demonstrated 6 mm calculus at left UP junction with associated hydronephrosis. Cysto with left ureteroscopy, laser lithotripsy, basket stone extraction, left ureteral stent placement performed by Dr. Portillo. DC ceftriaxone, urine culture results-Prelim Staph Aureus. Start Bactrim Continue tamsulosin, phenazopyridine, analgesics. Stent removed by patient today in the bathroom, Taken back to OR for Laser, DC today Add Bactrim DS for 7 days, Flomax 0.4 for 30 days, Pyridium 200 TID x 3 days (2) Hepatitis C: By history (3) DVT prophylaxis: SCD's ordered. (4) Discharge planning issues: Return to [facility] under care of his health care team there today. Urology follow-up with Dr. Portillo. Discharge Plan Discharge Items [facility] Disposition: [facility] Reason For Visit: RENAL COLIC Discharge Diagnosis: Renal Stone UTI Discharge Goals: Improve disease control Activity: Resume your previous activity Lifting: None and Gradually increase as tolerated Bathing: No limitations Sexual Activity: When tolerated Exercise/Sports: None and Gradually increase as tolerated Driving/Machine Use: No limitations Weightbearing: Left weightbearing and Right weightbearing Non-emergency contact: Primary Care Provider and Urologist Call non-emergency contact if: you have any medication questions Follow-up/Referrals: [facility] [Primary Care Provider] - Rosalinda Portillo MD [Physician] - (1-2 weeks or as directed) Diet: Regular Addtl Provider Instructions: Arrange f/u c if needed Prescriptions: New acetaminophen [Mapap (acetaminophen)] 325 mg Tablet 650 mg PO Q4H PRN (Reason: fever or pain) Qty: 90 RF: 0 sulfamethoxazole-trimethoprim 800-160 mg Tablet 1 tab PO Q12 Qty: 14 RF: 0 tamsulosin 0.4 mg Capsule 0.4 mg PO HS Qty: 30 RF: 0 phenazopyridine [Pyridium] 200 mg Tablet 200 mg PO TID Qty: 9 RF: 0 Continued ibuprofen 400 mg Tablet 400 mg PO TID PRN (Reason: Pain) RF: 0 mirtazapine 30 mg Tablet 30 mg PO HS RF: 0 nortriptyline 25 mg Capsule 25 mg PO BID RF: 0 Stand-Alone Forms: [facility] Discharge Orders: Discharge Order (Routine); Ordered 03/25/19 Ordered By: aKn Garcia Admission Data Admit Date/Time: 03/23/19 23:06 Attending Provider: Kan Garcia Admit Provider: Nathanael Miguel Primary Care Provider: [facility] Other Providers: Nathanael Miguel ; Rosalinda Portillo Service: Surgical Services
[2019-03-30 09:38] LABS: Component 2 DNR
== END 2019-03-25 19:00 | DRG 661 ==
LOC: ED 18:41 → SUATTDRO 23:06 → 3W 23:06